=== PATIENT | male | born 1965 ===

== ENCOUNTER 2018-11-21 12:07 | Observation (INO) | payer OTHER ==
--- NOTE | 2018-11-21 12:52 | ED PDOC ---
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 states for the past 3 months he's had intermittent dizziness, SOB, mid-nika rnal chest pressure, b/l knee pain, b/l foot pain. Pt. states these symptoms are present only at night and occur every night and has been progressively worsening the past 2 weeks. Also states he's felt fatigue for the same amount of time. Denies chest pain, hemoptysis, fever, trauma, hearing changes, chills, abd pain, headache. Past Medical History Reviewed: Historical Data, Nursing Documentation, Vital Signs Vital Signs: Last Vital Signs Temp 98.5 F 11/21/18 12:34 Pulse 72 11/21/18 12:34 Resp 18 11/21/18 12:34 BP 119/74 11/21/18 12:34 Pulse Ox 95 11/21/18 12:34 - Medical History PMH: No Chronic Diseases - Surgical History Surgical History: No Surg Hx - Family History Family History: States: No Known Family Hx - Home Medications Home Medications: Ambulatory Orders Medication Instructions Recorded RX: No Known Home Med 11/21/18 - Allergies Allergies/Adverse Reactions: Allergies Allergy/AdvReac Type Severity Reaction Status Date / Time No Known Allergies Allergy Verified 11/21/18 12:31 Review of Systems ROS Statement: Except As Marked, All Systems Reviewed And Found Negative Physical Exam - Physical Exam Appears: Positive for: Well, Non-toxic, No Acute Distress Head Exam: Positive for: ATRAUMATIC, NORMAL INSPECTION, NORMOCEPHALIC Skin: Positive for: Normal Color, Warm. Negative for: Rash Eye Exam: Positive for: Normal appearance, EOMI, PERRL. Negative for: Nystagmus ENT: Positive for: Normal ENT Inspection Cardiovascular/Chest: Positive for: Regular Rate, Rhythm Respiratory: Positive for: Normal Breath Sounds. Negative for: Respiratory Distress Gastrointestinal/Abdominal: Positive for: Soft. Negative for: Tenderness Neurologic/Psych: Positive for: Alert, Oriented (x3), Gait (steady, unassisted). Negative for: Aphasia, Facial Droop - Laboratory Results Result Diagrams: 11/21/18 13:30 11/21/18 13:30 - ECG ECG: Positive for: Interpreted By Me ECG Rhythm: Positive for: Sinus Rhythm. Negative for: ST/T Changes Rate: 73 O2 Sat by Pulse Oximetry: 95 - Radiology X-Ray: Interpreted by Me (CXR) X-Ray Interpretation: No Acute Disease - Progress ED Course And Treament: Labs, CT head w/o contrast, EKG, antivert 50mg PO ordered. 1450 CT head w/o contrast: There is a small elliptical/somewhat cylindrical shaped hyperdense focus in the right superior frontal subcortical the and cortical region. This small focus is of uncertain etiology. Differential diagnosis would include a small DVA- venous angioma or possibly a small cortical surface hemorrhage however the former is favored. Results d/w Dr. Valladares who recommends contacting Dr. Hernandez. Case and results d/w Dr. Hernandez who recommends CTA head/neck. pattern fitter 408 On re-evaluation, pt. reports dizziness has resolved and he is feeling much better but still has b/l knee and foot pain. Informed of results and confirms that all symptoms including dizziness have been on going for 3 months and worsened over the past 2 weeks and occurred again last night. Repeat neuro exam is non-focal. Informed of results and plan. Pt. and family agree with plan. CTA head/neck, PT/PTT ordered. 1650 CTA head/neck: negative as per radiology report. Results d/w Dr. Hernandez who requests MRV head w/ contrast to be done for tomorrow and for patient to get ASA PO. Pt. and family informed of plan and all agree. All questions answered. Case d/w Dr. Glover, hospitalist, and arrangements made for admission. Disposition - Clinical Impression Clinical Impression: Dizziness - Patient ED Disposition Is Patient to be Admitted: Yes - Disposition Disposition: Routine/Home Disposition Time: 16:50 Condition: STABLE
[2018-11-21 13:44] LABS: BASO # 0.1 K/uL (0.0-0.2); BASO % 1.1 % (0.0-2.0); EOS # 0.2 K/uL (0.0-0.7); EOS % 2.1 % (0.0-4.0); HEMOGLOBIN 14.5 g/dL (12.0-18.0); LYMPH # 3.3 K/uL (1.0-4.3); LYMPH % 38.7 % (20.0-40.0); MEAN CELL VOLUME 91.5 fl (80.0-94.0); MEAN CORPUSCULAR HEMOGLOBIN 30.2 pg (27.0-31.0); MEAN PLATELET VOLUME 8.4 fl (7.2-11.7); MONO # 0.8 K/uL (0.0-0.8); MONO % 8.9 % (0.0-10.0); NEUT # 4.2 K/uL (1.8-7.0); NEUT % 49.2 % (50.0-75.0); NRBC % 0.2 % (0.0-0.0); RBC 4.82 Mil/uL (4.40-5.90); RED CELL DISTRIBUTION WIDTH 13.7 % (11.5-14.5); WHITE BLOOD COUNT 8.5 K/uL (4.8-10.8)
[2018-11-21 14:00] LABS: SQUAMOUS EPITHIAL < 1 /hpf (0-5); URINE BILIRUBIN NEGATIVE (NEGATIVE); URINE BLOOD NEGATIVE (NEGATIVE); URINE CLARITY SLIGHTY-CLOUDY (Clear); URINE COLOR YELLOW (YELLOW); URINE GLUCOSE (UA) NEG (NEGATIVE); URINE LEUKOCYTE ESTERASE NEG Leu/uL (Negative); URINE PROTEIN NEGATIVE (NEGATIVE)
[2018-11-21 14:02] LABS: ALB/GLOB RATIO 1.1 (1.0-2.1); ALBUMIN 4.1 g/dL (3.5-5.0); ALT/SGPT 30 U/L (21-72); AST/SGOT 25 U/L (17-59); BLOOD UREA NITROGEN 13 mg/dl (9-20); CALCIUM 9.5 mg/dL (8.4-10.2); GFR NON-AFRICAN AMERICAN > 60
[2018-11-21 14:10] LABS: B-TYPE NATRIURETIC PEPTIDE 18.2 pg/ml (0-900)
--- NOTE | 2018-11-21 14:21 | CT ---
Date of service: 11/21/2018 PROCEDURE: CT HEAD WITHOUT CONTRAST. HISTORY: Dizziness COMPARISON: None available. TECHNIQUE: Axial computed tomography images were obtained through the head/brain without intravenous contrast. Radiation dose: Total exam DLP = 824.54 mGy-cm. This CT exam was performed using one or more of the following dose reduction techniques: Automated exposure control, adjustment of the mA and/or kV according to patient size, and/or use of iterative reconstruction technique. FINDINGS: HEMORRHAGE: There is a tiny elliptical somewhat cylindrical shaped hyperdense focus seen in the right superior frontal subcortical and cortical region. This focus is of uncertain etiology.. Differential diagnosis would include a small developmental venous anomaly such is a venous angioma or small cortical surface hemorrhage however the former is favored. Follow-up of pre and post-contrast MRI of brain is recommended the for further evaluation of this lesion. BRAIN: No mass effect or edema. No atrophy or chronic microvascular ischemic changes. VENTRICLES: No obstructive hydrocephalus. CALVARIUM: Unremarkable. PARANASAL SINUSES: Unremarkable as visualized. No significant inflammatory changes. MASTOID AIR CELLS: Unremarkable as visualized. No inflammatory changes. OTHER FINDINGS: None. IMPRESSION: There is a small elliptical/somewhat cylindrical shaped hyperdense focus in the right superior frontal subcortical the and cortical region. This small focus is of uncertain etiology. Differential diagnosis would include a small DVA- venous angioma or possibly a small cortical surface hemorrhage however the former is favored. Follow-up pre and post-contrast MRI of the brain is recommended for further evaluation of this lesion.
[2018-11-21] MEDS ORDERED: Iodixanol 320 MG/ML 100 ML BOTTLE IV ONE (15:00)
[2018-11-21] MEDS ORDERED: Sodium Chloride 0.9% 50 ML IV ONE (15:01)
[2018-11-21 15:19] LABS: INR 0.9; PROTHROMBIN TIME 10.6 Seconds (9.8-13.1)
[2018-11-21 15:22] LABS: PARTIAL THROMBOPLASTIN TIME 28.9 Seconds (25.6-37.1)
--- NOTE | 2018-11-21 15:56 | RAD ---
Date of service: 11/21/2018 HISTORY: chest pain COMPARISON: No prior TECHNIQUE: Chest PA and lateral FINDINGS: LUNGS: Minimal linear atelectasis both lung bases left greater than right. PLEURA: No significant pleural effusion identified. No pneumothorax apparent. CARDIOVASCULAR: No aortic atherosclerotic calcification present. Normal cardiac size. No pulmonary vascular congestion. OSSEOUS STRUCTURES: No significant abnormalities. VISUALIZED UPPER ABDOMEN: Normal. OTHER FINDINGS: None. IMPRESSION: Minimal linear atelectasis both lung bases left greater than right.
--- NOTE | 2018-11-21 16:30 | CT ---
Date of service: 11/21/2018 PROCEDURE: CT Angiography of the neck and brain with contrast HISTORY: As requested by Dr. Hernandez COMPARISON: None. TECHNIQUE: Contiguous axial images of the neck were obtained from the level of the skull-base to the superior mediastinum in the arteriographic phase of enhancement. Coronal and sagittal reformats or also generated. IV contrast dose: 95 cc Visipaque 320 contrast material. Radiation dose: Total exam DLP = 517.17 mGy-cm. This CT exam was performed using one or more of the following dose reduction techniques: Automated exposure control, adjustment of the mA and/or kV according to patient size, and/or use of iterative reconstruction technique. FINDINGS: The aortic arch is widely patent with no significant calcified atherosclerotic plaque. The common carotid arteries, carotid bifurcations widely patent as well with no evidence of occlusion, significant stenosis or dissection. The internal carotid arteries including the petrous cavernous and supraclinoid segments also patent on the. No significant atherosclerotic plaque. The vertebral arteries are patent throughout left-sided which is slightly larger in caliber/more dominant than the right-sided. Basilar artery is patent as well. The visualized major branches of the [id number] are also patent. Distal branches of the anterior middle and posterior cerebral arteries relatively symmetric. No evidence of large aneurysm nor vascular malformation.. Recommend follow-up of pre and post-contrast MRI of the brain for further evaluation if necessary. OTHER FINDINGS: Centrilobular emphysematous changes seen in the lung apices and upper lobes.. Mild multilevel degenerative spondylosis of the cervical spine. IMPRESSION: Normal CT Angiography of the neck.
--- NOTE | 2018-11-21 17:55 | CP.PCM.HP ---
History of Present Illness - History of Present Illness History of Present Illness: 53 y/o male with no PMH presented to ER complaining of dizziness episode that happened this morning after getting up from sleep and going outside to smoke and have his coffee. Patient states that he felt like the surrounding was spinning and he was unsteady on his feet. Episode lasted about 10 seconds so he decided to come to ER for evaluation . He denies any other focal deficits, denies any AGUIRRE, blurry vision ,nausea, vomiting , problems with his speech, denies head trauma, denies any ear ache or ringing/ noise .Patient states that he has been getting similar episodes now for few years on ant off very infrequent , lasting about 10 seconds, usually after getting up from lying down , feeling of being unsteady He is a smoker , about 3 ppd and complains of having dyspnea with minimal ambulation # 1 block . Denies any chest pain or palpitations, orthopnea, urinary sx or changes in bowel movements. Denies any weight gain or loss, heat intolerance. He also complains of LLE pain from his knee to the foot on and off and feeling of heat in both his legs at times. 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, smokes 3 ppd , denies ETOH or drug abuse Surrogate decission maker ; spouse Code status ; Full PMD ; None Present on Admission - Present on Admission Any Indicators Present on Admission: No Review of Systems - Review of Systems All systems: reviewed and no additional remarkable complaints except Past Patient History - Infectious Disease Hx of Infectious Diseases: None - Tetanus Immunizations Tetanus Immunization: Unknown - Past Medical History & Family History Past Medical History?: No Past Family History: Reviewed and not pertinent - Past Social History Smoking Status: Heavy Smoker > 10 Cigarettes Daily Chewing Tobacco Use: No Cigar Use: No Alcohol: None Drugs: Denies Home Situation {Lives}: With Family Domestic Violence: Negative - PSYCHIATRIC Hx Substance Use: No - SURGICAL HISTORY Hx Surgeries: Yes Hx Appendectomy: Yes - ANESTHESIA Hx Anesthesia: Yes Hx Anesthesia Reactions: No Meds Allergies/Adverse Reactions: Allergies Allergy/AdvReac Type Severity Reaction Status Date / Time No Known Allergies Allergy Verified 11/21/18 12:31 Physical Exam - Constitutional Appears: Well, Non-toxic, No Acute Distress - Head Exam Head Exam: ATRAUMATIC, NORMAL INSPECTION, NORMOCEPHALIC - Eye Exam Eye Exam: EOMI, Normal appearance, PERRL Pupil Exam: NORMAL ACCOMODATION - ENT Exam ENT Exam: Mucous Membranes Moist, Normal Exam - Neck Exam Neck exam: Positive for: Full Rom, Normal Inspection - Respiratory Exam Respiratory Exam: Clear to Auscultation Bilateral, NORMAL BREATHING PATTERN. absent: Rales, Rhonchi, Wheezes - Cardiovascular Exam Cardiovascular Exam: REGULAR RHYTHM, RRR, +S1, +S2. absent: JVD - GI/Abdominal Exam GI & Abdominal Exam: Normal Bowel Sounds, Soft. absent: Distended, Guarding, Rebound, Tenderness - Rectal Exam Rectal Exam: Deferred - Extremities Exam Extremities exam: Positive for: full ROM, normal capillary refill, normal inspection, pedal pulses present. Negative for: calf tenderness, joint swelling, pedal edema - Back Exam Back exam: NORMAL INSPECTION - Neurological Exam Neurological exam: Alert, CN II-XII Intact, Oriented x3, Reflexes Normal - Skin Skin Exam: Dry, Intact, Normal Color, Warm Results - Vital Signs Recent Vital Signs: Last Vital Signs Temp 97 F L 11/21/18 16:41 Pulse 68 11/21/18 16:41 Resp 19 11/21/18 16:41 BP 120/65 11/21/18 16:41 Pulse Ox 95 11/21/18 15:06 - Labs Result Diagrams: 11/21/18 13:30 11/21/18 13:30 Labs: Laboratory Results - last 24 hr 11/21/18 11/21/18 11/21/18 13:30 13:30 13:30 WBC 8.5 RBC 4.82 Hgb 14.5 Hct 44.1 MCV 91.5 MCH 30.2 MCHC 33.0 RDW 13.7 Plt Count 345 MPV 8.4 Neut % (Auto) 49.2 L Lymph % (Auto) 38.7 [place] % (Auto) 8.9 Eos % (Auto) 2.1 Baso % (Auto) 1.1 Neut # (Auto) 4.2 Lymph # (Auto) 3.3 [place] # (Auto) 0.8 Eos # (Auto) 0.2 Baso # (Auto) 0.1 PT INR APTT Sodium 140 Potassium 3.9 Chloride 107 Carbon Dioxide 27 Anion Gap 10 BUN 13 Creatinine 0.9 Est GFR ( Amer) > 60 Est GFR (Non-Af Amer) > 60 Random Glucose 111 H Calcium 9.5 Total Bilirubin 0.3 AST 25 ALT 30 Alkaline Phosphatase 114 Troponin I < 0.0120 NT-Pro-B Natriuret Pep 18.2 Total Protein 7.8 Albumin 4.1 Globulin 3.6 Albumin/Globulin Ratio 1.1 Urine Color Yellow Urine Clarity Slighty-cloudy Urine pH 5.0 Ur Specific [place] 1.029 Urine Protein Negative Urine Glucose (UA) Neg Urine Ketones Trace Urine Blood Negative Urine Nitrate Negative Urine Bilirubin Negative Urine Urobilinogen 2.0 Ur Leukocyte Esterase Neg Urine RBC (Auto) 13 H Urine Microscopic WBC 1 Ur Squamous Epith Cells < 1 11/21/18 15:00 WBC RBC Hgb Hct MCV MCH MCHC RDW Plt Count MPV Neut % (Auto) Lymph % (Auto) [place] % (Auto) Eos % (Auto) Baso % (Auto) Neut # (Auto) Lymph # (Auto) [place] # (Auto) Eos # (Auto) Baso # (Auto) PT 10.6 INR 0.9 APTT 28.9 Sodium Potassium Chloride Carbon Dioxide Anion Gap BUN Creatinine Est GFR ( Amer) Est GFR (Non-Af Amer) Random Glucose Calcium Total Bilirubin AST ALT Alkaline Phosphatase Troponin I NT-Pro-B Natriuret Pep Total Protein Albumin Globulin Albumin/Globulin Ratio Urine Color Urine Clarity Urine pH Ur Specific [place] Urine Protein Urine Glucose (UA) Urine Ketones Urine Blood Urine Nitrate Urine Bilirubin Urine Urobilinogen Ur Leukocyte Esterase Urine RBC (Auto) Urine Microscopic WBC Ur Squamous Epith Cells - Imaging and Cardiology CT scan - head Additional comment: There is a small elliptical/somewhat cylindrical shaped hyperdense focus in the right superior frontal subcortical the and cortical region. This small focus is of uncertain etiology. Differential diagnosis would include a small DVA- venous angioma or possibly a small cortical surface hemorrhage however the former is favored. Follow-up pre and post-contrast MRI of the brain is recommended for further evaluation of this lesion. CTA head and neck Additional comment: No acute pathology Chest x-ray Additional comment: Minimal linear atelectasis bilateral bases Assessment & Plan - Assessment and Plan (Free Text) Assessment: 53 y/o male , smoker with no PMH presented to ER complaining of dizziness episode that happened this morning after getting up from sleep and going outside to smoke and have his coffee. Patient states that he felt like the surrounding was spinning and he was unsteady on his feet. Episode lasted about 10 seconds and he has no neurodeficits. In ER found to be hemodynamically stable, afebrile with no neuiro deficits Ct head showed :small elliptical/somewhat cylindrical shaped hyperdense focus in the right superior frontal subcortical the and cortical region. This small focus is of uncertain etiology. Differential diagnosis would include a small DVA- venous angioma or possibly a small cortical surface hemorrhage however the former is favored. Neuro consulted and recommended CTA head and neck which was normal After discussion with neuro recommended placing patient under observation in telemtery and ordering MRV brain to rule out cavernous sinus thrombosis and give patient ASA 1. Dizziness most likely BPV vs orthostatic since it happens mostly after getting up from lying to standing position ( chronic ) CT head as above Place patient under observation in telemetry Neuro checks Neuro consulted ASa given Will order MRV brain as per neuro recommendations to rule out cavernous sinus thrombosis 2. Smoker patient smokes 3 ppd counselled on smoking cessation has dyspnea with minimal ambulation CXR showed minimal bibasilar atelectasis Will need Echo Trop - negative 3. Bilateral LE neuropathy counselled on smoking cessation check lipid profile pulses are intact 4. DVt prophylaxis SCD lovenox
[2018-11-21 19:47] LABS: HDL CHOLESTEROL 42 MG/DL (30-70)
[2018-11-21 19:58] LABS: LDL CHOLESTEROL 170 mg/dL (0-129)
[2018-11-22 00:08] VITALS: RESP 18
--- NOTE | 2018-11-22 00:19 | CARD ---
APPROVED REPORT Date of service: 11/21/2018 EKG Measurement Heart [id number] <Conclusion> Normal sinus rhythm Possible Left atrial enlargement Incomplete right bundle branch block Borderline ECG
[2018-11-22 08:29] VITALS: BP 115/69; PULSE 58; TEMP 97.8; O2SAT 98
[2018-11-22] MEDS ORDERED: Enoxaparin 40 mg Syringe SC SCH (09:00)
--- NOTE | 2018-11-22 09:55 | RAD ---
Date of service: 11/21/2018 PROCEDURE: Left Knee Radiographs. HISTORY: Pain. COMPARISON: None. FINDINGS: BONES: Normal. No fracture. JOINTS: Mild lateral patellofemoral tilt-mild lateral patellar femoral early degenerative changes. JOINT EFFUSION: Small effusion suggested OTHER FINDINGS: Quadriceps insertional enthesophyte Peripatellar insertional enthesophyte also noted. IMPRESSION: Minimal early degenerative changes as above. Small joint effusion suspect. Peripatellar enthesophyte as above.
--- NOTE | 2018-11-22 12:03 | CP.PCM.PN ---
Subjective - Date & Time of Evaluation Date of Evaluation: 11/22/18 Time of Evaluation: 10:57 Objective - Vital Signs/Intake and Output Vital Signs (last 24 hours): Temp Pulse Resp BP Pulse Ox 97.8 F 58 L 18 115/69 98 11/22/18 08:23 11/22/18 08:23 11/22/18 08:23 11/22/18 08:23 11/22/18 08:23 - Medications Medications: Current Medications Acetaminophen (Tylenol 325mg Tab) 650 mg PO Q6 PRN PRN Reason: Pain, Mild (1-3) Acetaminophen (Tylenol 325mg Tab) 650 mg PO Q6 PRN PRN Reason: Fever >100.4 F Atorvastatin Calcium (Lipitor) 20 mg PO DAILY [facility] Last Admin: 11/22/18 10:01 Dose: 20 mg Enoxaparin Sodium (Lovenox) 40 mg SC DAILY [facility]; Protocol Last Admin: 11/22/18 10:02 Dose: 40 mg Ketorolac Tromethamine (Toradol) 30 mg IVP Q6 PRN PRN Reason: Pain, severe (8-10) Ondansetron HCl (Zofran Inj) 4 mg IVP Q6 PRN PRN Reason: Nausea/Vomiting - Labs Labs: 11/21/18 13:30 11/21/18 13:30 PT 10.6 Seconds (9.8-13.1) 11/21/18 15:00 INR 0.9 11/21/18 15:00 APTT 28.9 Seconds (25.6-37.1) 11/21/18 15:00
--- NOTE | 2018-11-22 12:56 | MRI ---
Date of service: 11/22/2018 PROCEDURE: MR venogram without intravenous contrast > INDICATION: dizziness TECHNIQUE: A 2D and 3-D [id number] MR venogram of the head was performed. Post processed images were obtained. COMPARISON: None. FINDINGS: There is normal flow related signal in the larger dural venous sinuses. No evidence of dural venous thrombosis. IMPRESSION: No evidence for dural venous thrombosis.
--- NOTE | 2018-11-22 14:29 | CP.PCM.DIS ---
Provider - Provider Date of Admission: 11/21/18 17:08 Attending physician: Sara Glover MD Primary care physician: PMD- none Patient to follow up in the [facility] Consults: 11/21/18 17:14 Neurology Consult Stat Comment: Consulting Provider: Sergio Hernandez Consulting Physician: Sergio Hernandez Reason for Consult: dizziness 11/22/18 09:00 Social Work Referral Routine Comment: current heavy smoker > 10 cig a day Physician Instructions: Reason For Exam: smoking cessation Time Spent in preparation of Discharge (in minutes): 30 Hospital Course - Lab Results Lab Results: Most Recent Lab Values WBC 8.5 K/uL (4.8-10.8) 11/21/18 13:30 RBC 4.82 Mil/uL (4.40-5.90) 11/21/18 13:30 Hgb 14.5 g/dL (12.0-18.0) 11/21/18 13:30 Hct 44.1 % (35.0-51.0) 11/21/18 13:30 MCV 91.5 fl (80.0-94.0) 11/21/18 13:30 MCH 30.2 pg (27.0-31.0) 11/21/18 13:30 MCHC 33.0 g/dL (33.0-37.0) 11/21/18 13:30 RDW 13.7 % (11.5-14.5) 11/21/18 13:30 Plt Count 345 K/uL (130-400) 11/21/18 13:30 MPV 8.4 fl (7.2-11.7) 11/21/18 13:30 Neut % (Auto) 49.2 % (50.0-75.0) L 11/21/18 13:30 Lymph % (Auto) 38.7 % (20.0-40.0) 11/21/18 13:30 Hill % (Auto) 8.9 % (0.0-10.0) 11/21/18 13:30 Eos % (Auto) 2.1 % (0.0-4.0) 11/21/18 13:30 Baso % (Auto) 1.1 % (0.0-2.0) 11/21/18 13:30 Neut # (Auto) 4.2 K/uL (1.8-7.0) 11/21/18 13:30 Lymph # (Auto) 3.3 K/uL (1.0-4.3) 11/21/18 13:30 Hill # (Auto) 0.8 K/uL (0.0-0.8) 11/21/18 13:30 Eos # (Auto) 0.2 K/uL (0.0-0.7) 11/21/18 13:30 Baso # (Auto) 0.1 K/uL (0.0-0.2) 11/21/18 13:30 PT 10.6 Seconds (9.8-13.1) 11/21/18 15:00 INR 0.9 11/21/18 15:00 APTT 28.9 Seconds (25.6-37.1) 11/21/18 15:00 Sodium 140 mmol/l (132-148) 11/21/18 13:30 Potassium 3.9 MMOL/L (3.6-5.0) 11/21/18 13:30 Chloride 107 mmol/L (98-107) 11/21/18 13:30 Carbon Dioxide 27 mmol/L (22-30) 11/21/18 13:30 Anion Gap 10 (10-20) 11/21/18 13:30 BUN 13 mg/dl (9-20) 11/21/18 13:30 Creatinine 0.9 mg/dl (0.8-1.5) 11/21/18 13:30 Est GFR ( Amer) > 60 11/21/18 13:30 Est GFR (Non-Af Amer) > 60 11/21/18 13:30 Random Glucose 111 mg/dL (75-110) H 11/21/18 13:30 Calcium 9.5 mg/dL (8.4-10.2) 11/21/18 13:30 Total Bilirubin 0.3 mg/dl (0.2-1.3) 11/21/18 13:30 AST 25 U/L (17-59) 11/21/18 13:30 ALT 30 U/L (21-72) 11/21/18 13:30 Alkaline Phosphatase 114 U/L (38-126) 11/21/18 13:30 Troponin I < 0.0120 ng/mL (0.00-0.120) 11/22/18 10:20 NT-Pro-B Natriuret Pep 18.2 pg/ml (0-900) 11/21/18 13:30 Total Protein 7.8 G/DL (6.3-8.2) 11/21/18 13:30 Albumin 4.1 g/dL (3.5-5.0) 11/21/18 13:30 Globulin 3.6 gm/dL (2.2-3.9) 11/21/18 13:30 Albumin/Globulin Ratio 1.1 (1.0-2.1) 11/21/18 13:30 Triglycerides 200 mg/DL (0-149) H 11/21/18 18:10 Cholesterol 271 mg/dL (0-199) H 11/21/18 18:10 LDL Cholesterol Direct 170 mg/dL (0-129) H 11/21/18 18:10 HDL Cholesterol 42 MG/DL (30-70) 11/21/18 18:10 TSH 3rd Generation 1.57 mIU/ML (0.46-4.68) 11/21/18 18:10 Urine Color Yellow (YELLOW) 11/21/18 13:30 Urine Clarity Slighty-cloudy (Clear) 11/21/18 13:30 Urine pH 5.0 (5.0-8.0) 11/21/18 13:30 Ur Specific [place] 1.029 (1.003-1.030) 11/21/18 13:30 Urine Protein Negative mg/dL (NEGATIVE) 11/21/18 13:30 Urine Glucose (UA) Neg mg/dL (NEGATIVE) 11/21/18 13:30 Urine Ketones Trace mg/dL (NEGATIVE) 11/21/18 13:30 Urine Blood Negative (NEGATIVE) 11/21/18 13:30 Urine Nitrate Negative (NEGATIVE) 11/21/18 13:30 Urine Bilirubin Negative (NEGATIVE) 11/21/18 13:30 Urine Urobilinogen 2.0 mg/dL (0.2-1.0) 11/21/18 13:30 Ur Leukocyte Esterase Neg Anderson/uL (Negative) 11/21/18 13:30 Urine RBC (Auto) 13 /hpf (0-3) H 11/21/18 13:30 Urine Microscopic WBC 1 /hpf (0-5) 11/21/18 13:30 Ur Squamous Epith Cells < 1 /hpf (0-5) 11/21/18 13:30 - Hospital Course Hospital Course: 53 y/o male smoker patient with no PMHx presented to ER complaining of dizziness episode that occurred yesterday morning, lasted for several minutes and has resolved at this time. Patient denies F/N/V/SOB/chills at this time. Patient is aware to followup in the [facility] post discharge regarding ECHO results. 1. Dizziness likely secondary to BPV vs. orthostatic hypertension - CT: small elliptical/somewhat cylindrical shaped hyperdense focus in the right superior frontal subcortical the and cortical region. This small focus is of uncertain etiology. Differential diagnosis would include a small DVA- venous angioma or possibly a small cortical surface hemorrhage however the former is favored. - MRV: negative for dural venous thrombosis - ECHO results- Pending - Patient to followup in [facility] 11/29/18 at 3:[address] Luna 2. Smoker - counselled on smoking cessation - ECHO- results pending - Trop (x3)- negative 3. Bilateral LE neuropathy - counselled on smoking cessation - Date & Time of H&P Date of H&P: 11/22/18 Time of H&P: 14:49 Discharge Exam - Head Exam Head Exam: ATRAUMATIC, NORMAL INSPECTION, NORMOCEPHALIC - Eye Exam Eye Exam: Normal appearance Pupil Exam: NORMAL ACCOMODATION, PERRL - ENT Exam ENT Exam: Mucous Membranes Moist - Respiratory Exam Respiratory Exam: Clear to PA & Lateral, UNREMARKABLE. absent: Rales, Rhonchi, Wheezes - Cardiovascular Exam Cardiovascular Exam: REGULAR RHYTHM, +S1, +S2 - GI/Abdominal Exam GI & Abdominal Exam: Normal Bowel Sounds. absent: Distended, Rigid - Rectal Exam Rectal Exam: Deferred - Extremities Exam Extremities exam: full ROM, normal capillary refill - Neurological Exam Neurological exam: Alert, Normal Gait, Oriented x3, Reflexes Normal - Skin Skin Exam: Normal Color Discharge Plan - Follow Up Plan Condition: STABLE Disposition: HOME/ ROUTINE Patient education suggested?: Yes Instructions: Vertigo (a Type of Dizziness), Labyrinthitis, Vertigo (a Type of Dizziness) (DC), Dizziness, Nonvertigo, (DC) Additional Instructions: Patient to follow up at [facility] on 11/29/18 at 3:[address] Luna Referrals: [facility] [Provider Group] Clinical Quality Measures - CQM - VTE Did patient receive overlap therapy during hosptialization?: No
--- NOTE | 2018-11-23 08:58 | CARD ---
APPROVED REPORT Date of service: 11/22/2018 EXAM: Two-dimensional and M-mode echocardiogram with Doppler and color Doppler. Other Information Quality : GoodRhythm : NSR INDICATION Dyspnea 2D DIMENSIONS IVSd1.36 (0.7-1.1cm)LVDd4.22 (3.9-5.9cm) LVOT Diameter2.24 (1.8-2.4cm)PWd1.06 (0.7-1.1cm) IVSs1.56 (0.8-1.2cm)LVDs2.77 (2.5-4.0cm) FS (%) 34.5 %PWs1.37 (0.8-1.2cm) M-Mode DIMENSIONS Left Atrium (MM)3.32 (2.5-4.0cm)IVSd1.35 (0.7-1.1cm) Aortic Root3.62 (2.2-3.7cm)LVDd4.65 (4.0-5.6cm) Aortic Cusp Exc.2.32 (1.5-2.0cm)PWd1.26 (0.7-1.1cm) IVSs1.47 cmFS (%) 45 % LVDs2.56 (2.0-3.8cm)PWs1.38 cm Aortic Valve AoV Peak Uyekvbze635.7cm/sAoV VTI22.9cmAO Peak GR.5mmHg LVOT Peak Heythize798.3cm/sLVOT VTI21.30cmAO Mean GR.3mmHg EDDIE (VMAX)1.31lq3POH (VTI)1.72cm2 Mitral Valve MV E Dxbdputc77.2cm/sMV DECEL [id number] A Cwukawrk49.7cm/s MV OAG87ayS/A ratio1.0MVA (PHT)2.84cm2 TDI Lateral E' Peak V13.04cm/sMedial E' Peak V10.67cm/sE/Lateral E'3.8 E/Medial E'4.7 LEFT VENTRICLE The left ventricle is normal size. There is normal left ventricular wall thickness. The left ventricular systolic function is normal. The estimated ejection fraction is 60-65% No regional wall motion abnormalities noted.. Transmitral Doppler flow pattern is Grade I-abnormal relaxation pattern. No left ventricle thrombus noted on this study. There is no ventricular septal defect visualized. There is no left ventricular aneurysm. There is no mass noted in the left ventricle. RIGHT VENTRICLE The right ventricle is normal size. There is normal right ventricular wall thickness. The right ventricular systolic function is normal. ATRIA The left atrium size is normal. The right atrium size is normal. The interatrial septum is intact with no evidence for an atrial septal defect. AORTIC VALVE The aortic valve is normal in structure. No aortic regurgitation is present. There is no aortic valvular stenosis. There is no aortic valvular vegetation. MITRAL VALVE The mitral valve is normal in structure. There is no evidence of mitral valve prolapse. There is no mitral valve stenosis. There is no mitral valve regurgitation noted. TRICUSPID VALVE The tricuspid valve is normal in structure. There is no tricuspid valve regurgitation noted. There is no tricuspid valve prolapse or vegetation. There is no tricuspid valve stenosis. PULMONIC VALVE The pulmonary valve is normal in structure. There is no pulmonic valvular regurgitation. There is no pulmonic valvular stenosis. GREAT VESSELS The aortic root is normal in size. The ascending aorta is normal in size. The pulmonary artery is normal. The IVC is normal in size and collapses >50% with inspiration. PERICARDIAL EFFUSION There is no pericardial effusion. There is no pleural effusion. <Conclusion> The estimated ejection fraction is 60-65% Transmitral Doppler flow pattern is Grade I-abnormal relaxation pattern. The left atrium size is normal. There is no significant tricuspid valve regurgitation noted.
== END 2018-11-22 17:12 | disposition home or self-care (01) ==
LOC: H.ER 12:07 → H.ERHOLD 17:08 → H.MEDSURG1 18:54
PROVIDERS: ADMIT Hospitalist; ATTEND Hospitalist
DX: R42 Dizziness and giddiness (principal); R07.89 Other chest pain; G62.9 Polyneuropathy, unspecified; F17.210 Nicotine dependence, cigarettes, uncomplicated
CPT/HCPCS: 36415; 70450; 70496; 70498; 70544; 71046; 73562; 80053; 80061; 81003; 83036; 83880; 84443; 84484; 85025; 85610; 85730; 93005; 93306; 96374; 99285; G0378; J1650; J2405; Q9967